=== PATIENT | female | born 1980 | race Two or more races ===

== ENCOUNTER 2019-10-13 11:00 | Inpatient (IN) | payer OTHER ==
[~2019-10-13] VITALS: Ht 162.6 cm; Wt 74.8 kg
== END 2019-10-16 13:38 | disposition home or self-care (01) | DRG 807 ==
LOC: LDR 10-14 07:53 → SURG-SUITE 10-14 15:13 → OB/GYN 10-22 11:00
PROVIDERS: ADMIT Obstetrics & Gynecology; ATTEND Obstetrics & Gynecology
PROC: 10E0XZZ Delivery of Products of Conception, External Approach (ICD-10-PCS; principal; 2019-10-14)
PROC: 0KQM0ZZ Repair Perineum Muscle, Open Approach (ICD-10-PCS; 2019-10-14)
PROC: 4A1HXCZ Monitoring of Products of Conception, Cardiac Rate, External Approach (ICD-10-PCS; 2019-10-14)
DX: O70.1 Second degree perineal laceration during delivery (principal); Z37.0 Single live birth; Z3A.38 38 weeks gestation of pregnancy; Z20.828 Contact with and (suspected) exposure to other viral communicable diseases